=== PATIENT | male | born 1965 | race Caucasian/White ===

== ENCOUNTER 2020-02-27 12:21 | Inpatient (IN) | payer BC ==
[2020-02-27] MEDS ORDERED: Iopamidol 755 Mg/ML 100 ML Bottle IVPUSH ONE (12:37)
[2020-02-27 12:54] LABS: CHLORIDE,CL 93 mEq/L (98-106); SODIUM,NA 132 mEq/L (136-145)
[2020-02-27] MEDS ORDERED: Docusate Sodium 100 MG Cap PO PRN (13:40)
[2020-02-27] MEDS: Sodium Chloride 0.9% 1,000 ML IV SCH ×2 (15:10→23:28)
[2020-02-27] MEDS: Clindamycin Phosphate in D5W 300 MG in Premix Bag 1 BAG IV SCH ×4 (15:10→19:29)
[2020-02-27] MEDS: metFORMIN 500 MG Tab PO SCH (17:33)
[2020-02-27] MEDS: Acetaminophen 325 MG Tab PO PRN (17:38)
[2020-02-27] MEDS: Insulin Lispro 100 Units/ML 3 ML Vial SUBCUT SCH (17:41)
[2020-02-27] MEDS: Metoprolol Tartrate 25 MG Tab PO SCH (19:28)
[2020-02-27] MEDS: Enoxaparin 40 MG/0.4 ML Syringe SUBCUT SCH (19:28)
[2020-02-27] MEDS: Insulin Glarg,Human.Rec.Analog 100 Unit/ML SUBCUT SCH (19:57)
[2020-02-27] MEDS: Ibuprofen 200 MG Tab PO PRN (21:14)
[2020-02-27] MEDS: Morphine 2 MG/ML SYRINGE IVPUSH PRN (21:16)
[2020-02-27] MEDS: Ketorolac 10 MG Tab PO PRN (23:25)
[2020-02-28] MEDS: Clindamycin Phosphate in D5W 300 MG in Premix Bag 1 BAG IV SCH ×8 (01:30→19:16)
[2020-02-28] MEDS: Pantoprazole 40 MG Tab.CR PO SCH (06:37)
[2020-02-28] MEDS: Aspirin 81 MG Tab.Chew PO SCH (07:37)
[2020-02-28] MEDS: Metoprolol Tartrate 25 MG Tab PO SCH ×2 (07:37→19:21)
[2020-02-28] MEDS: amLODIPine 2.5 MG Tab PO SCH (07:37)
[2020-02-28] MEDS: Simvastatin 20 MG Tab PO SCH (07:37)
[2020-02-28 07:39] LABS: CHLORIDE,CL 98 mEq/L (98-106); SODIUM,NA 135 mEq/L (136-145)
[2020-02-28] MEDS: Acetaminophen 325 MG Tab PO PRN ×2 (07:50→17:22)
[2020-02-28] MEDS: Sodium Chloride 0.9% 1,000 ML IV SCH ×2 (07:51→21:08)
[2020-02-28] MEDS: Insulin Lispro 100 Units/ML 3 ML Vial SUBCUT SCH ×3 (08:00→17:18)
[2020-02-28] MEDS: metFORMIN 500 MG Tab PO SCH ×2 (08:08→17:18)
--- NOTE | 2020-02-28 09:55 | PCM.PN ---
- General Info Date of Service: 02/28/20 Admission Dx/Problem (Free Text): Cellulitis Subjective Update: Patient states is still sore to chest. Less pain than yesterday. He was febrile last night. Minimal appetite yet. Admits to being up several times during the night to void. Tylenol helps with fever and relieving the discomfort. Functional Status: Reports: Pain Controlled, Tolerating Diet, Ambulating, Urinating - Review of Systems General: Reports: Fever, Weakness, Fatigue, Malaise HEENT: Reports: No Symptoms Pulmonary: Denies: Shortness of Breath, Cough Cardiovascular: Denies: Chest Pain, Edema, Lightheadedness Gastrointestinal: Denies: Abdominal Pain, Nausea, Vomiting Genitourinary: Reports: No Symptoms Musculoskeletal: Reports: Shoulder Pain Skin: Reports: Other (redness) Neurological: Reports: No Symptoms Psychiatric: Reports: No Symptoms - Patient Data Vitals - Most Recent: Last Vital Signs Temp 99.9 F 02/28/20 08:37 Pulse 95 02/28/20 07:49 Resp 20 02/28/20 07:49 BP 169/82 H 02/28/20 07:49 Pulse Ox 100 02/28/20 07:49 Weight - Most Recent: 231 lb 9.6 oz I&O - Last 24 Hours: Intake & Output 02/27/20 02/28/20 02/28/20 22:59 06:59 14:59 Intake Total 100 1050 1000 Balance 100 1050 1000 Lab Results Last 24 Hours: Laboratory Results - last 24 hr 02/27/20 02/27/20 02/27/20 Range/Units 12:30 12:30 12:30 WBC 17.4 H (5.0-10.0) 10^3/uL RBC 5.00 (4.50-6.00) 10^6/uL Hgb 14.0 (14.0-18.0) g/dL Hct 42.0 (40.0-54.0) % MCV 84.0 (82.0-94.0) fL MCH 28.0 (27.0-32.0) pg MCHC 33.3 (33.0-38.0) g/dL RDW Coeff of [place] 13.1 (11.0-15.0) % Plt Count 310 (150-400) 10^3/uL Neut % (Auto) 84.6 (35-85) % Lymph % (Auto) 6.4 L (10-55) % [place] % (Auto) 8.1 (0-16) % Eos % (Auto) 0.7 (0-5) % Baso % (Auto) 0.2 (0-3) % Neut # (Auto) 14.69 H (1.80-7.00) 10^3/uL Lymph # (Auto) 1.12 (1.00-4.80) 10^3/uL [place] # (Auto) 1.41 H (0.00-0.80) 10^3/uL Eos # (Auto) 0.12 (0.00-0.45) 10^3/uL Baso # (Auto) 0.04 10^3/uL Sodium 132 L (136-145) mEq/L Potassium 4.1 (3.5-5.0) mEq/L Chloride 93 L (98-106) mEq/L Carbon Dioxide 26 (21-32) mmol/L BUN 18 (7-18) mg/dL Creatinine 1.3 (0.7-1.3) mg/dL Est Cr Clr Drug Dosing TNP Estimated GFR (MDRD) 57 L (>=60) mL/min Glucose 308 H* (75-99) mg/dL POC Glucose (75-105) mg/dl Lactic Acid 2.1 H (0.4-2.0) mmol/L Calcium 9.1 (8.4-10.1) mg/dL C-Reactive Protein 35.9 H (0.2-0.8) mg/dL 02/27/20 02/27/20 02/28/20 Range/Units 17:21 19:56 07:00 WBC 13.7 H (5.0-10.0) 10^3/uL RBC 4.63 (4.50-6.00) 10^6/uL Hgb 13.1 L (14.0-18.0) g/dL Hct 38.9 L (40.0-54.0) % MCV 84.0 (82.0-94.0) fL MCH 28.3 (27.0-32.0) pg MCHC 33.7 (33.0-38.0) g/dL RDW Coeff of [place] 13.1 (11.0-15.0) % Plt Count 278 (150-400) 10^3/uL Neut % (Auto) 79.5 (35-85) % Lymph % (Auto) 9.7 L (10-55) % [place] % (Auto) 8.7 (0-16) % Eos % (Auto) 2.0 (0-5) % Baso % (Auto) 0.1 (0-3) % Neut # (Auto) 10.85 H (1.80-7.00) 10^3/uL Lymph # (Auto) 1.32 (1.00-4.80) 10^3/uL [place] # (Auto) 1.19 H (0.00-0.80) 10^3/uL Eos # (Auto) 0.27 (0.00-0.45) 10^3/uL Baso # (Auto) 0.02 10^3/uL Sodium (136-145) mEq/L Potassium (3.5-5.0) mEq/L Chloride (98-106) mEq/L Carbon Dioxide (21-32) mmol/L BUN (7-18) mg/dL Creatinine (0.7-1.3) mg/dL Est Cr Clr Drug Dosing Estimated GFR (MDRD) (>=60) mL/min Glucose (75-99) mg/dL POC Glucose 269 H 354 H (75-105) mg/dl Lactic Acid (0.4-2.0) mmol/L Calcium (8.4-10.1) mg/dL C-Reactive Protein (0.2-0.8) mg/dL 02/28/20 02/28/20 02/28/20 Range/Units 07:00 07:00 07:42 WBC (5.0-10.0) 10^3/uL RBC (4.50-6.00) 10^6/uL Hgb (14.0-18.0) g/dL Hct (40.0-54.0) % MCV (82.0-94.0) fL MCH (27.0-32.0) pg MCHC (33.0-38.0) g/dL RDW Coeff of [place] (11.0-15.0) % Plt Count (150-400) 10^3/uL Neut % (Auto) (35-85) % Lymph % (Auto) (10-55) % [place] % (Auto) (0-16) % Eos % (Auto) (0-5) % Baso % (Auto) (0-3) % Neut # (Auto) (1.80-7.00) 10^3/uL Lymph # (Auto) (1.00-4.80) 10^3/uL [place] # (Auto) (0.00-0.80) 10^3/uL Eos # (Auto) (0.00-0.45) 10^3/uL Baso # (Auto) 10^3/uL Sodium 135 L (136-145) mEq/L Potassium 4.0 (3.5-5.0) mEq/L Chloride 98 (98-106) mEq/L Carbon Dioxide 28 (21-32) mmol/L BUN 15 (7-18) mg/dL Creatinine 1.2 (0.7-1.3) mg/dL Est Cr Clr Drug Dosing 74.08 Estimated GFR (MDRD) > 60 (>=60) mL/min Glucose 210 H D (75-99) mg/dL POC Glucose 185 H (75-105) mg/dl Lactic Acid 1.1 (0.4-2.0) mmol/L Calcium 8.8 (8.4-10.1) mg/dL C-Reactive Protein 38.3 H (0.2-0.8) mg/dL Med Orders - Current: Current Medications Acetaminophen (Tylenol) 650 mg PO Q4H PRN PRN Reason: Pain (Mild 1-3)/fever Last Admin: 02/28/20 07:50 Dose: 650 mg Documented by: Amlodipine Besylate (Norvasc) 2.5 mg PO DAILY [facility] Last Admin: 02/28/20 07:37 Dose: 2.5 mg Documented by: Aspirin (Aspirin) 81 mg PO DAILY [facility] Last Admin: 02/28/20 07:37 Dose: 81 mg Documented by: Docusate Sodium (Colace) 100 mg PO BID PRN PRN Reason: Constipation Enoxaparin Sodium (Lovenox) 40 mg SUBCUT Q24H [facility] Last Admin: 02/27/20 19:28 Dose: 40 mg Documented by: Sodium Chloride (Normal Saline) 1,000 mls @ 125 mls/hr IV ASDIRECTED [facility] Last Admin: 02/28/20 07:51 Dose: 125 mls/hr Documented by: Clindamycin Phosphate 300 mg/ (Premix) 50 mls @ 100 mls/hr IV Q6H [facility] Last Admin: 02/28/20 07:36 Dose: 100 mls/hr Documented by: Ibuprofen (Motrin) 400 mg PO Q6H PRN PRN Reason: Pain (mild 1-3) Last Admin: 02/27/20 21:14 Dose: 400 mg Documented by: Insulin Glargine (Lantus) 30 unit SUBCUT BEDTIME [facility] Last Admin: 02/27/20 19:57 Dose: 30 units Documented by: Insulin Human Lispro (Humalog) 14 unit SUBCUT TIDAC [facility] Last Admin: 02/28/20 08:00 Dose: 14 units Documented by: Ketorolac Tromethamine (Toradol) 10 mg PO Q6H PRN PRN Reason: Pain Stop: 03/03/20 15:58 Last Admin: 02/27/20 23:25 Dose: 10 mg Documented by: Metformin HCl (Glucophage) 1,000 mg PO BIDMEALS [facility] Last Admin: 02/28/20 08:08 Dose: Not Given Documented by: Metoprolol Tartrate (Lopressor) 25 mg PO BID [facility] Last Admin: 02/28/20 07:37 Dose: 25 mg Documented by: Morphine Sulfate (Morphine) 2 mg IVPUSH Q2H PRN PRN Reason: Pain (severe 7-10) Last Admin: 02/27/20 21:16 Dose: 2 mg Documented by: Pantoprazole Sodium (Protonix) 40 mg PO ACBRK [facility] Last Admin: 02/28/20 06:37 Dose: 40 mg Documented by: Simvastatin (Zocor) 20 mg PO DAILY [facility] Last Admin: 02/28/20 07:37 Dose: 20 mg Documented by: Discontinued Medications Iopamidol (Isovue-370 (76%)) 100 ml IVPUSH ONETIME ONE Stop: 02/27/20 12:38 Last Admin: 02/27/20 13:02 Dose: 100 ml Documented by: - Exam General: Alert, Oriented HEENT: Mucous Membr. Moist/[place] Neck: Supple Lungs: Clear to Auscultation, Normal Respiratory Effort Cardiovascular: Regular Rate, Regular Rhythm GI/Abdominal Exam: Normal Bowel Sounds, Soft, Non-Tender Extremities: Normal Inspection, No Pedal Edema Skin: Warm, Dry Neurological: No New Focal Deficit Sepsis Event Note - Evaluation Sepsis Screening Result: Sepsis Risk - Focused Exam Vital Signs: Vital Signs Temp Pulse Pulse Resp BP BP Pulse Ox 02/28/20 08:37 99.9 F 02/28/20 07:49 100.2 F 95 20 169/82 H 100 02/28/20 07:37 90 153/76 H 02/28/20 05:00 98.4 F 90 20 153/76 H 100 02/27/20 23:37 98.0 F 88 20 150/79 H 95 - Problem List & Annotations (1) Cellulitis SNOMED Code(s): 198295176 Code(s): L03.90 - CELLULITIS, UNSPECIFIED Status: Acute Priority: High Current Visit: Yes Qualifiers: Site of cellulitis: unspecified site Qualified Code(s): L03.90 - Cellulitis, unspecified - Problem List Review Problem List Initiated/Reviewed/Updated: Yes - Assessment Assessment:: Cellulitis chest wall - Plan Plan:: Will continue with IV Cleocin. Reduce IV fluids to 75 ml/hr. Up and ambulate. Blood pressure elevated this am. WBC 13.7, decreased slightly from yesterday. CRP high at 38.3. Glucose has been running high at 210. Continue to monitor.
[2020-02-28] MEDS: Ibuprofen 200 MG Tab PO PRN (12:09)
[2020-02-28] MEDS: Enoxaparin 40 MG/0.4 ML Syringe SUBCUT SCH (19:22)
[2020-02-28] MEDS: Insulin Glarg,Human.Rec.Analog 100 Unit/ML SUBCUT SCH (20:05)
[2020-02-28] MEDS: Ketorolac 10 MG Tab PO PRN (21:07)
[2020-02-28] MEDS: Morphine 2 MG/ML SYRINGE IVPUSH PRN (23:40)
[2020-02-29] MEDS: Clindamycin Phosphate in D5W 300 MG in Premix Bag 1 BAG IV SCH ×8 (01:55→19:37)
[2020-02-29] MEDS: Acetaminophen 325 MG Tab PO PRN ×3 (04:12→16:31)
[2020-02-29] MEDS: Pantoprazole 40 MG Tab.CR PO SCH (06:58)
[2020-02-29 07:35] LABS: CHLORIDE,CL 100 mEq/L (98-106); SODIUM,NA 136 mEq/L (136-145)
[2020-02-29] MEDS: metFORMIN 500 MG Tab PO SCH ×2 (08:12→17:27)
[2020-02-29] MEDS: Insulin Lispro 100 Units/ML 3 ML Vial SUBCUT SCH ×3 (08:12→17:29)
[2020-02-29] MEDS: Aspirin 81 MG Tab.Chew PO SCH (08:20)
[2020-02-29] MEDS: Metoprolol Tartrate 25 MG Tab PO SCH ×2 (08:20→19:34)
[2020-02-29] MEDS: Ibuprofen 200 MG Tab PO PRN ×2 (08:20→19:45)
[2020-02-29] MEDS: amLODIPine 2.5 MG Tab PO SCH (08:20)
[2020-02-29] MEDS: Simvastatin 20 MG Tab PO SCH (08:21)
--- NOTE | 2020-02-29 10:16 | PCM.PN ---
- General Info Date of Service: 02/29/20 Admission Dx/Problem (Free Text): Cellulitis Functional Status: Reports: Pain Controlled, Tolerating Diet, Ambulating - Review of Systems General: Reports: Malaise. Denies: Fever, Weakness, Fatigue HEENT: Denies: Headaches, Sinus Congestion, Sore Throat Pulmonary: Denies: Shortness of Breath, Cough Cardiovascular: Denies: Chest Pain, Edema, Lightheadedness Gastrointestinal: Denies: Abdominal Pain, Nausea, Vomiting Genitourinary: Reports: No Symptoms Musculoskeletal: Reports: No Symptoms Skin: Reports: Other (redness and warmth to right anterior chest) Neurological: Denies: Dizziness, Weakness - Patient Data Vitals - Most Recent: Last Vital Signs Temp 97.6 F 02/29/20 08:00 Pulse 81 02/29/20 08:20 Resp 20 02/29/20 08:00 BP 149/82 H 02/29/20 08:20 Pulse Ox 97 02/29/20 08:00 Weight - Most Recent: 231 lb 9.6 oz I&O - Last 24 Hours: Intake & Output 02/28/20 02/29/20 02/29/20 22:59 06:59 14:59 Intake Total 1050 50 Balance 1050 50 Lab Results Last 24 Hours: Laboratory Results - last 24 hr 02/28/20 02/28/20 02/28/20 Range/Units 11:29 17:10 20:03 WBC (5.0-10.0) 10^3/uL RBC (4.50-6.00) 10^6/uL Hgb (14.0-18.0) g/dL Hct (40.0-54.0) % MCV (82.0-94.0) fL MCH (27.0-32.0) pg MCHC (33.0-38.0) g/dL RDW Coeff of [place] (11.0-15.0) % Plt Count (150-400) 10^3/uL Neut % (Auto) (35-85) % Lymph % (Auto) (10-55) % [place] % (Auto) (0-16) % Eos % (Auto) (0-5) % Baso % (Auto) (0-3) % Neut # (Auto) (1.80-7.00) 10^3/uL Lymph # (Auto) (1.00-4.80) 10^3/uL [place] # (Auto) (0.00-0.80) 10^3/uL Eos # (Auto) (0.00-0.45) 10^3/uL Baso # (Auto) 10^3/uL Sodium (136-145) mEq/L Potassium (3.5-5.0) mEq/L Chloride (98-106) mEq/L Carbon Dioxide (21-32) mmol/L BUN (7-18) mg/dL Creatinine (0.7-1.3) mg/dL Est Cr Clr Drug Dosing mL/min Estimated GFR (MDRD) (>=60) mL/min Glucose (75-99) mg/dL POC Glucose 276 H 245 H 304 H (75-105) mg/dl Lactic Acid (0.4-2.0) mmol/L Calcium (8.4-10.1) mg/dL C-Reactive Protein (0.2-0.8) mg/dL 02/29/20 02/29/20 02/29/20 Range/Units 07:00 07:00 07:00 WBC 9.7 (5.0-10.0) 10^3/uL RBC 4.37 L (4.50-6.00) 10^6/uL Hgb 12.3 L (14.0-18.0) g/dL Hct 36.9 L (40.0-54.0) % MCV 84.4 (82.0-94.0) fL MCH 28.1 (27.0-32.0) pg MCHC 33.3 (33.0-38.0) g/dL RDW Coeff of [place] 13.0 (11.0-15.0) % Plt Count 287 (150-400) 10^3/uL Neut % (Auto) 71.8 (35-85) % Lymph % (Auto) 16.0 (10-55) % [place] % (Auto) 7.9 (0-16) % Eos % (Auto) 4.1 (0-5) % Baso % (Auto) 0.2 (0-3) % Neut # (Auto) 6.97 (1.80-7.00) 10^3/uL Lymph # (Auto) 1.55 (1.00-4.80) 10^3/uL [place] # (Auto) 0.77 (0.00-0.80) 10^3/uL Eos # (Auto) 0.40 (0.00-0.45) 10^3/uL Baso # (Auto) 0.02 10^3/uL Sodium 136 (136-145) mEq/L Potassium 3.6 (3.5-5.0) mEq/L Chloride 100 (98-106) mEq/L Carbon Dioxide 28 (21-32) mmol/L BUN 15 (7-18) mg/dL Creatinine 1.2 (0.7-1.3) mg/dL Est Cr Clr Drug Dosing 74.08 mL/min Estimated GFR (MDRD) > 60 (>=60) mL/min Glucose 227 H (75-99) mg/dL POC Glucose (75-105) mg/dl Lactic Acid 0.7 (0.4-2.0) mmol/L Calcium 8.5 (8.4-10.1) mg/dL C-Reactive Protein 25.4 H (0.2-0.8) mg/dL 02/29/20 Range/Units 08:09 WBC (5.0-10.0) 10^3/uL RBC (4.50-6.00) 10^6/uL Hgb (14.0-18.0) g/dL Hct (40.0-54.0) % MCV (82.0-94.0) fL MCH (27.0-32.0) pg MCHC (33.0-38.0) g/dL RDW Coeff of [place] (11.0-15.0) % Plt Count (150-400) 10^3/uL Neut % (Auto) (35-85) % Lymph % (Auto) (10-55) % [place] % (Auto) (0-16) % Eos % (Auto) (0-5) % Baso % (Auto) (0-3) % Neut # (Auto) (1.80-7.00) 10^3/uL Lymph # (Auto) (1.00-4.80) 10^3/uL [place] # (Auto) (0.00-0.80) 10^3/uL Eos # (Auto) (0.00-0.45) 10^3/uL Baso # (Auto) 10^3/uL Sodium (136-145) mEq/L Potassium (3.5-5.0) mEq/L Chloride (98-106) mEq/L Carbon Dioxide (21-32) mmol/L BUN (7-18) mg/dL Creatinine (0.7-1.3) mg/dL Est Cr Clr Drug Dosing mL/min Estimated GFR (MDRD) (>=60) mL/min Glucose (75-99) mg/dL POC Glucose 202 H (75-105) mg/dl Lactic Acid (0.4-2.0) mmol/L Calcium (8.4-10.1) mg/dL C-Reactive Protein (0.2-0.8) mg/dL Shawn Results Last 24 Hours: Microbiology 02/27/20 14:43 Aerobic Blood Culture - Preliminary Blood - Venous - Lab Draw NO GROWTH AFTER 1 DAY Anaerobic Blood Culture - Preliminary NO GROWTH AFTER 1 DAY 02/27/20 14:43 Aerobic Blood Culture - Preliminary Blood - Venous NO GROWTH AFTER 1 DAY Anaerobic Blood Culture - Preliminary NO GROWTH AFTER 1 DAY Med Orders - Current: Current Medications Acetaminophen (Tylenol) 650 mg PO Q4H PRN PRN Reason: Pain (Mild 1-3)/fever Last Admin: 02/29/20 04:12 Dose: 650 mg Documented by: Amlodipine Besylate (Norvasc) 2.5 mg PO DAILY [facility] Last Admin: 02/29/20 08:20 Dose: 2.5 mg Documented by: Aspirin (Aspirin) 81 mg PO DAILY [facility] Last Admin: 02/29/20 08:20 Dose: 81 mg Documented by: Docusate Sodium (Colace) 100 mg PO BID PRN PRN Reason: Constipation Enoxaparin Sodium (Lovenox) 40 mg SUBCUT Q24H [facility] Last Admin: 02/28/20 19:22 Dose: 40 mg Documented by: Clindamycin Phosphate 300 mg/ (Premix) 50 mls @ 100 mls/hr IV Q6H [facility] Last Admin: 02/29/20 08:19 Dose: 100 mls/hr Documented by: Ibuprofen (Motrin) 400 mg PO Q6H PRN PRN Reason: Pain (mild 1-3) Last Admin: 02/29/20 08:20 Dose: 400 mg Documented by: Insulin Glargine (Lantus) 30 unit SUBCUT BEDTIME [facility] Last Admin: 02/28/20 20:05 Dose: 30 units Documented by: Insulin Human Lispro (Humalog) 14 unit SUBCUT TIDAC [facility] Last Admin: 02/29/20 08:12 Dose: 14 units Documented by: Ketorolac Tromethamine (Toradol) 10 mg PO Q6H PRN PRN Reason: Pain Stop: 03/03/20 15:58 Last Admin: 02/28/20 21:07 Dose: 10 mg Documented by: Metformin HCl (Glucophage) 1,000 mg PO BIDMEALS [facility] Last Admin: 02/29/20 08:12 Dose: Not Given Documented by: Metoprolol Tartrate (Lopressor) 25 mg PO BID [facility] Last Admin: 02/29/20 08:20 Dose: 25 mg Documented by: Morphine Sulfate (Morphine) 2 mg IVPUSH Q2H PRN PRN Reason: Pain (severe 7-10) Last Admin: 02/28/20 23:40 Dose: 2 mg Documented by: Pantoprazole Sodium (Protonix) 40 mg PO ACBRK [facility] Last Admin: 02/29/20 06:58 Dose: 40 mg Documented by: Simvastatin (Zocor) 20 mg PO DAILY [facility] Last Admin: 02/29/20 08:21 Dose: 20 mg Documented by: Discontinued Medications Sodium Chloride (Normal Saline) 1,000 mls @ 125 mls/hr IV ASDIRECTED [facility] Last Admin: 02/28/20 21:08 Dose: 125 mls/hr Documented by: Iopamidol (Isovue-370 (76%)) 100 ml IVPUSH ONETIME ONE Stop: 02/27/20 12:38 Last Admin: 02/27/20 13:02 Dose: 100 ml Documented by: - Exam General: Alert, Oriented HEENT: Mucous Membr. Moist/[place] Neck: Supple Lungs: Clear to Auscultation, Normal Respiratory Effort Cardiovascular: Regular Rate, Regular Rhythm GI/Abdominal Exam: Normal Bowel Sounds, Soft, Non-Tender Extremities: No Pedal Edema Skin: Warm, Dry Wound/Incisions: Erythema Improving (area to right chest is improving. Yesterday the redness had extended, now smaller in size, less tender. Still firm to localized area. ) Neurological: No New Focal Deficit Sepsis Event Note - Evaluation Sepsis Screening Result: No Definite Risk - Focused Exam Vital Signs: Vital Signs Temp Pulse Pulse Resp BP BP Pulse Ox 02/29/20 08:20 81 149/82 H 02/29/20 08:00 97.6 F 81 20 149/82 H 97 02/29/20 04:00 98.4 F 79 20 161/81 H 99 02/28/20 23:45 98.5 F 76 20 149/76 H 100 - Problem List & Annotations (1) Cellulitis SNOMED Code(s): 772874102 Code(s): L03.90 - CELLULITIS, UNSPECIFIED Status: Acute Priority: High Current Visit: Yes Qualifiers: Site of cellulitis: unspecified site Qualified Code(s): L03.90 - Cellulitis, unspecified - Problem List Review Problem List Initiated/Reviewed/Updated: Yes - Assessment Assessment:: Cellulitis chest wall - Plan Plan:: Will continue with IV Cleocin. Reduce IV fluids to 75 ml/hr. Up and ambulate. Blood pressure elevated this am. WBC 13.7, decreased slightly from yesterday. CRP high at 38.3. Glucose has been running high at 210. Continue to monitor. 02-29-2020 Patient is feeling better. States pain in shoulder is much improved. Area of redness yesterday had extended out but today more localized. Much less tender. Still warm and firm. States appetite has improved. Is up and ambulating. Labs are improving, WBC now normal. CRP trending down, 24.5 today. Blood pressure better at 149/82. Preliminary blood cultures negative. Will stop IV fluids. Continue IV Cleocin. Resume Metformin this evening. Possible discharge home tomorrow.
[2020-02-29] MEDS: Enoxaparin 40 MG/0.4 ML Syringe SUBCUT SCH (19:35)
[2020-02-29] MEDS: Insulin Glarg,Human.Rec.Analog 100 Unit/ML SUBCUT SCH (19:49)
[2020-03-01] MEDS: Clindamycin Phosphate in D5W 300 MG in Premix Bag 1 BAG IV SCH ×8 (01:26→20:28)
[2020-03-01] MEDS: Acetaminophen 325 MG Tab PO PRN ×4 (01:33→20:35)
[2020-03-01] MEDS: Ibuprofen 200 MG Tab PO PRN ×2 (05:10→12:24)
[2020-03-01] MEDS: Pantoprazole 40 MG Tab.CR PO SCH (06:09)
[2020-03-01] MEDS: amLODIPine 2.5 MG Tab PO SCH (07:39)
[2020-03-01] MEDS: metFORMIN 500 MG Tab PO SCH ×2 (07:40→16:59)
[2020-03-01] MEDS: Simvastatin 20 MG Tab PO SCH (07:40)
[2020-03-01] MEDS: Metoprolol Tartrate 25 MG Tab PO SCH ×2 (07:40→20:27)
[2020-03-01] MEDS: Aspirin 81 MG Tab.Chew PO SCH (07:41)
[2020-03-01] MEDS: Insulin Lispro 100 Units/ML 3 ML Vial SUBCUT SCH ×3 (07:43→17:02)
--- NOTE | 2020-03-01 09:00 | PCM.PN ---
- General Info Date of Service: 03/01/20 Admission Dx/Problem (Free Text): Cellulitis Subjective Update: Carlos is a 54 year old male who was admitted to the hospital on the with cellulitis to right chest wall. Had apparently been having increased right shoulder pain the week prior. Subsequently developed a hard lump with redness to right sternoclavicular area. CT chest was completed showing cellulitis in affected area, but no fluid collection/abscess. Was admitted and started on IV cleocin. He reports pain has improved. Area does still remain tender to light tough. Did take Tylenol prior to rounds and reports pain in area has now improved to 1/10. Is able to move his arm more than previous without significant pain. He has been afebrile since Sunday. Reports appetite is slowly improving. Functional Status: Reports: Pain Controlled, Tolerating Diet, Ambulating, Urinating. Denies: New Symptoms - Review of Systems General: Denies: Fever, Weakness, Fatigue, Malaise, Chills HEENT: Reports: No Symptoms Pulmonary: Reports: No Symptoms. Denies: Shortness of Breath, Pleuritic Chest Pain, Cough, Wheezing Cardiovascular: Reports: No Symptoms. Denies: Chest Pain, Dyspnea on Exertion, Orthopnea, Edema, Lightheadedness Gastrointestinal: Reports: No Symptoms. Denies: Abdominal Pain, Decreased Appetite, Diarrhea, Nausea, Vomiting Genitourinary: Reports: No Symptoms Musculoskeletal: Reports: Shoulder Pain (right) Skin: Reports: Other (area of erythema more localized, lump raised, firm, and tender to touch to right sternoclavicular region) Neurological: Reports: No Symptoms Psychiatric: Reports: No Symptoms - Patient Data Vitals - Most Recent: Last Vital Signs Temp 98.2 F 03/01/20 08:00 Pulse 68 03/01/20 08:00 Resp 16 03/01/20 08:00 BP 144/76 H 03/01/20 08:00 Pulse Ox 97 03/01/20 08:00 Weight - Most Recent: 231 lb 9.6 oz I&O - Last 24 Hours: Intake & Output 02/29/20 03/01/20 03/01/20 22:59 06:59 14:59 Intake Total 50 50 Balance 50 50 Lab Results Last 24 Hours: Laboratory Results - last 24 hr 02/29/20 02/29/20 02/29/20 Range/Units 11:44 17:27 19:48 POC Glucose 246 H 258 H 277 H (75-105) mg/dl 03/01/20 Range/Units 07:37 POC Glucose 221 H (75-105) mg/dl Shawn Results Last 24 Hours: Microbiology 02/27/20 14:43 Aerobic Blood Culture - Preliminary Blood - Venous - Lab Draw Staphylococcus Aureus Anaerobic Blood Culture - Final 02/27/20 14:43 Aerobic Blood Culture - Preliminary Blood - Venous NO GROWTH AFTER 2 DAYS Anaerobic Blood Culture - Final Med Orders - Current: Current Medications Acetaminophen (Tylenol) 650 mg PO Q4H PRN PRN Reason: Pain (Mild 1-3)/fever Last Admin: 03/01/20 08:05 Dose: 650 mg Documented by: Amlodipine Besylate (Norvasc) 2.5 mg PO DAILY [facility] Last Admin: 03/01/20 07:39 Dose: 2.5 mg Documented by: Aspirin (Aspirin) 81 mg PO DAILY [facility] Last Admin: 03/01/20 07:41 Dose: 81 mg Documented by: Docusate Sodium (Colace) 100 mg PO BID PRN PRN Reason: Constipation Enoxaparin Sodium (Lovenox) 40 mg SUBCUT Q24H [facility] Last Admin: 02/29/20 19:35 Dose: 40 mg Documented by: Clindamycin Phosphate 300 mg/ (Premix) 50 mls @ 100 mls/hr IV Q6H [facility] Last Admin: 03/01/20 07:38 Dose: 100 mls/hr Documented by: Ibuprofen (Motrin) 400 mg PO Q6H PRN PRN Reason: Pain (mild 1-3) Last Admin: 03/01/20 05:10 Dose: 400 mg Documented by: Insulin Glargine (Lantus) 30 unit SUBCUT BEDTIME [facility] Last Admin: 02/29/20 19:49 Dose: 30 units Documented by: Insulin Human Lispro (Humalog) 14 unit SUBCUT TIDAC [facility] Last Admin: 03/01/20 07:43 Dose: 14 units Documented by: Ketorolac Tromethamine (Toradol) 10 mg PO Q6H PRN PRN Reason: Pain Stop: 03/03/20 15:58 Last Admin: 02/28/20 21:07 Dose: 10 mg Documented by: Metformin HCl (Glucophage) 1,000 mg PO BIDMEALS [facility] Last Admin: 03/01/20 07:40 Dose: 1,000 mg Documented by: Metoprolol Tartrate (Lopressor) 25 mg PO BID [facility] Last Admin: 03/01/20 07:40 Dose: 25 mg Documented by: Morphine Sulfate (Morphine) 2 mg IVPUSH Q2H PRN PRN Reason: Pain (severe 7-10) Last Admin: 02/28/20 23:40 Dose: 2 mg Documented by: Pantoprazole Sodium (Protonix) 40 mg PO ACBRK [facility] Last Admin: 03/01/20 06:09 Dose: 40 mg Documented by: Simvastatin (Zocor) 20 mg PO DAILY [facility] Last Admin: 03/01/20 07:40 Dose: 20 mg Documented by: Discontinued Medications Sodium Chloride (Normal Saline) 1,000 mls @ 125 mls/hr IV ASDIRECTED [facility] Last Admin: 02/28/20 21:08 Dose: 125 mls/hr Documented by: Iopamidol ([id number] (76%)) 100 ml IVPUSH ONETIME ONE Stop: 02/27/20 12:38 Last Admin: 02/27/20 13:02 Dose: 100 ml Documented by: - Exam Quality Assessment: DVT Prophylaxis General: Alert, Oriented, No Acute Distress Neck: Supple Lungs: Clear to Auscultation, Normal Respiratory Effort Cardiovascular: Regular Rate, Regular Rhythm GI/Abdominal Exam: Normal Bowel Sounds, Soft, Non-Tender, No Organomegaly, No Distention, No Abnormal Bruit, No Mass, Pelvis Stable Extremities: Normal Inspection, Normal Range of Motion, Non-Tender, No Pedal Edema, Normal Capillary Refill Peripheral Pulses: 2+: Radial (L), Radial (R) Wound/Incisions: No Drainage, Erythema Improving, Other (raised hard lump to right sternoclavicular region, area tender to touch, erythema and calor improving) Neurological: No New Focal Deficit Psy/Mental Status: Alert, Normal Affect, Normal Mood Sepsis Event Note - Evaluation Sepsis Screening Result: No Definite Risk - Focused Exam Vital Signs: Vital Signs Temp Pulse Pulse Resp BP BP BP 03/01/20 08:00 98.2 F 68 16 144/76 H 03/01/20 07:40 68 144/76 H 03/01/20 07:39 144/76 H 03/01/20 05:00 96.0 F L 64 16 147/76 H 03/01/20 01:00 96.3 F L 71 16 144/72 H Pulse Ox 03/01/20 08:00 97 03/01/20 07:40 03/01/20 07:39 03/01/20 05:00 97 03/01/20 01:00 97 - Problem List & Annotations (1) Cellulitis SNOMED Code(s): 402783501 Code(s): L03.90 - CELLULITIS, UNSPECIFIED Status: Acute Priority: High Current Visit: Yes Qualifiers: Site of cellulitis: unspecified site Qualified Code(s): L03.90 - Cellulitis, unspecified (2) Sepsis due to Staphylococcus aureus SNOMED Code(s): 174818277 Code(s): A41.01 - SEPSIS DUE TO METHICILLIN SUSCEPTIBLE STAPHYLOCOCCUS AUREUS Status: Acute Current Visit: Yes - Problem List Review Problem List Initiated/Reviewed/Updated: Yes - My Orders Last 24 Hours: My Active Orders 03/01/20 08:46 CBC WITH AUTO DIFF [HEME] Routine 03/01/20 08:47 BMP [BASIC METABOLIC PANEL,BMP] [CHEM] Routine C-REACTIVE PROTEIN [CHEM] Routine - Assessment Assessment:: Cellulitis chest wall Sepsis - Plan Plan:: Labs improving. WBC improved from 17.4 on admit to 7.9 today. CRP continues to trend down as well. Was 35.9 on admit and is 11.7 today. Preliminary blood cultures 1/4 positive for staph aureus. Labs otherwise stable. VSS on RA. Has been afebrile since Sunday. Continues to have firm lump to right sternoclavicular region, but erythema more localized and pain improving. Appetite improving. No diarrhea. Awaiting final blood culture/sensitivity. Will continue with IV cleocin. Anticipate discharge tomorrow.
[2020-03-01 09:18] LABS: CHLORIDE,CL 102 mEq/L (98-106); SODIUM,NA 138 mEq/L (136-145)
[2020-03-01] MEDS: Enoxaparin 40 MG/0.4 ML Syringe SUBCUT SCH (20:28)
[2020-03-01] MEDS: Insulin Glarg,Human.Rec.Analog 100 Unit/ML SUBCUT SCH (20:29)
[2020-03-02] MEDS: Ketorolac 10 MG Tab PO PRN (02:06)
[2020-03-02] MEDS: Clindamycin Phosphate in D5W 300 MG in Premix Bag 1 BAG IV SCH ×4 (02:07→07:50)
[2020-03-02] MEDS: Aspirin 81 MG Tab.Chew PO SCH (07:49)
[2020-03-02] MEDS: metFORMIN 500 MG Tab PO SCH (07:49)
[2020-03-02] MEDS: Metoprolol Tartrate 25 MG Tab PO SCH (07:49)
[2020-03-02] MEDS: Acetaminophen 325 MG Tab PO PRN (07:49)
[2020-03-02] MEDS: amLODIPine 2.5 MG Tab PO SCH (07:49)
[2020-03-02] MEDS: Simvastatin 20 MG Tab PO SCH (07:49)
[2020-03-02] MEDS: Pantoprazole 40 MG Tab.CR PO SCH (07:49)
[2020-03-02] MEDS: Insulin Lispro 100 Units/ML 3 ML Vial SUBCUT SCH (07:54)
--- NOTE | 2020-03-02 10:55 | PCM.DCSUM1 ---
Discharge Summary - Hospital Course HPI Initial Comments: Carlos is a 54 year old male who was admitted to the hospital 02/27/2020 for right chest cellulitis. Had been having right shoulder pain for approximately the week prior. Had been into [facility] ED and was thought to be musculoskeletal. Over the next few days he developed large lump to right sternoclavicular area with redness. Was then seen in clinic by Beverley Jain. WBC was elevated to 17.4 and CRP was elevated to 35.9. Chest CT was completed revealing cellulitis of this area without abscess formation. Blood culture were obtained. 03/22 cultures grew staph aureus. Patient was treated with IV clindamycin, which was sensitive. Area of erythema did improve throughout stay. Patient was afebrile after day 1. Pain slightly improved. Labs did improve. WBC was 17.4 on admit and improved to 7.9 on discharge. CRP was 35.9 on admit and improved to 11.7 at time of discharge. Patient will be discharged home on 7 more days of clindamycin. He is advised to follow up with Laquita Jain in 7 days for recheck. - Discharge Data Discharge Date: 03/02/20 Discharge Disposition: Home, Self-Care 01 Condition: Good - Referral to Home Health Primary Care Physician: Andrei Jain PA-C - Discharge Diagnosis/Problem(s) (1) Cellulitis SNOMED Code(s): 949402039 ICD Code: L03.90 - CELLULITIS, UNSPECIFIED Status: Acute Priority: High Qualifiers: Site of cellulitis: unspecified site Qualified Code(s): L03.90 - Cellulitis, unspecified (2) Sepsis due to Staphylococcus aureus SNOMED Code(s): 765755308 ICD Code: A41.01 - SEPSIS DUE TO METHICILLIN SUSCEPTIBLE STAPHYLOCOCCUS AUREUS Status: Acute - Patient Instructions Diet: Usual Diet as Tolerated, Drink 8-10+ Glasses/Day, Diabetic Diet Activity: As Tolerated Notify Provider of: Fever, Increased Pain, Swelling and Redness, Nausea and/or Vomiting - Discharge Plan *PRESCRIPTION DRUG MONITORING PROGRAM REVIEWED*: Not Applicable *COPY OF PRESCRIPTION DRUG MONITORING REPORT IN PATIENT BENJY: Not Applicable Prescriptions/Med Rec: Clindamycin HCl 300 mg PO QID 7 Days #28 capsule amLODIPine [Norvasc] 5 mg PO DAILY #90 Ketorolac [Toradol] 10 mg PO Q6H PRN #20 PRN Reason: Pain Home Medications: Home Meds Aspirin 81 mg PO DAILY 02/27/20 [History] Insulin Aspart [NovoLOG] 14 unit SQ TIDAC 02/27/20 [History] Insulin Glargine,Hum.Rec.Anlog [Lantus Solostar] 30 unit SQ BEDTIME 02/27/20 [History] Metoprolol Tartrate 25 mg PO BID 02/27/20 [History] Omeprazole 20 mg PO DAILY 02/27/20 [History] Rosuvastatin [Crestor] 20 mg PO DAILY 02/27/20 [History] metFORMIN [Glucophage] 1,000 mg PO BIDMEALS 02/27/20 [History] Clindamycin HCl 300 mg PO QID 7 Days #28 capsule 03/02/20 [Rx] Ketorolac [Toradol] 10 mg PO Q6H PRN #20 03/02/20 [Rx] amLODIPine [Norvasc] 5 mg PO DAILY #90 03/02/20 [Rx] Patient Handouts: Cellulitis, Adult, [id number] Referrals: Andrei Jain PA-C [Primary Care Provider] - Santiago Vega MD [Ordering Only Provider] - - Discharge Summary/Plan Comment DC Time >30 min.: No - General Info Date of Service: 03/02/20 Admission Dx/Problem (Free Text: Cellulitis Subjective Update: Patient reports he is feeling well this morning. Is anxious to discharge home. Reports pain has improved. Redness is more localized to lump in right sternoclavicular region. Denies any diarrhea. No other complaints. Functional Status: Reports: Pain Controlled, Tolerating Diet, Ambulating, Urinating. Denies: New Symptoms - Review of Systems General: Denies: Fever, Weakness, Fatigue, Malaise, Chills HEENT: Reports: No Symptoms Pulmonary: Reports: No Symptoms Cardiovascular: Reports: No Symptoms Gastrointestinal: Reports: No Symptoms. Denies: Abdominal Pain, Diarrhea, Nausea, Vomiting Genitourinary: Reports: No Symptoms Musculoskeletal: Reports: Shoulder Pain Skin: Reports: Other (erythema improving) Neurological: Reports: No Symptoms Psychiatric: Reports: No Symptoms - Patient Data Vitals - Most Recent: Last Vital Signs Temp 97.3 F 03/02/20 08:00 Pulse 80 03/02/20 08:00 Resp 18 03/02/20 08:00 BP 145/89 H 03/02/20 08:00 Pulse Ox 95 03/02/20 08:00 Weight - Most Recent: 231 lb 9.6 oz I&O - Last 24 hours: Intake & Output 03/01/20 03/02/20 03/02/20 22:59 06:59 14:59 Intake Total 50 50 Balance 50 50 Lab Results - Last 24 hrs: Laboratory Results - last 24 hr 03/01/20 03/01/20 03/01/20 Range/Units 10:33 16:58 20:16 POC Glucose 178 H 221 H 235 H (75-105) mg/dl 03/02/20 Range/Units 07:44 POC Glucose 161 H (75-105) mg/dl KANDY Results - Last 24 hrs: Microbiology 02/27/20 14:43 Aerobic Blood Culture - Final Blood - Venous - Lab Draw Staphylococcus Aureus Anaerobic Blood Culture - Final 02/27/20 14:43 Aerobic Blood Culture - Preliminary Blood - Venous NO GROWTH AFTER 3 DAYS Anaerobic Blood Culture - Final Med Orders - Current: Current Medications Acetaminophen (Tylenol) 650 mg PO Q4H PRN PRN Reason: Pain (Mild 1-3)/fever Last Admin: 03/02/20 07:49 Dose: 650 mg Documented by: Amlodipine Besylate (Norvasc) 2.5 mg PO DAILY [facility] Last Admin: 03/02/20 07:49 Dose: 2.5 mg Documented by: Aspirin (Aspirin) 81 mg PO DAILY [facility] Last Admin: 03/02/20 07:49 Dose: 81 mg Documented by: Docusate Sodium (Colace) 100 mg PO BID PRN PRN Reason: Constipation Enoxaparin Sodium (Lovenox) 40 mg SUBCUT Q24H [facility] Last Admin: 03/01/20 20:28 Dose: 40 mg Documented by: Clindamycin Phosphate 300 mg/ (Premix) 50 mls @ 100 mls/hr IV Q6H [facility] Last Admin: 03/02/20 07:50 Dose: 100 mls/hr Documented by: Ibuprofen (Motrin) 400 mg PO Q6H PRN PRN Reason: Pain (mild 1-3) Last Admin: 03/01/20 12:24 Dose: 400 mg Documented by: Insulin Glargine (Lantus) 30 unit SUBCUT BEDTIME [facility] Last Admin: 03/01/20 20:29 Dose: 30 units Documented by: Insulin Human Lispro (Humalog) 14 unit SUBCUT TIDAC [facility] Last Admin: 03/02/20 07:54 Dose: 14 units Documented by: Ketorolac Tromethamine (Toradol) 10 mg PO Q6H PRN PRN Reason: Pain Stop: 03/03/20 15:58 Last Admin: 03/02/20 02:06 Dose: 10 mg Documented by: Metformin HCl (Glucophage) 1,000 mg PO BIDMEALS [facility] Last Admin: 03/02/20 07:49 Dose: 1,000 mg Documented by: Metoprolol Tartrate (Lopressor) 25 mg PO BID [facility] Last Admin: 03/02/20 07:49 Dose: 25 mg Documented by: Morphine Sulfate (Morphine) 2 mg IVPUSH Q2H PRN PRN Reason: Pain (severe 7-10) Last Admin: 02/28/20 23:40 Dose: 2 mg Documented by: Pantoprazole Sodium (Protonix) 40 mg PO ACBRK [facility] Last Admin: 03/02/20 07:49 Dose: 40 mg Documented by: Simvastatin (Zocor) 20 mg PO DAILY [facility] Last Admin: 03/02/20 07:49 Dose: 20 mg Documented by: Discontinued Medications Sodium Chloride (Normal Saline) 1,000 mls @ 125 mls/hr IV ASDIRECTED [facility] Last Admin: 02/28/20 21:08 Dose: 125 mls/hr Documented by: Clindamycin Phosphate 300 mg/ (Premix) 50 mls @ 100 mls/hr IV Q6H [facility] Last Admin: 03/01/20 12:56 Dose: 100 mls/hr Documented by: Iopamidol (Isovue-370 (76%)) 100 ml IVPUSH ONETIME ONE Stop: 02/27/20 12:38 Last Admin: 02/27/20 13:02 Dose: 100 ml Documented by: - Exam Quality Assessment: Reports: DVT Prophylaxis General: Reports: Alert, Oriented, No Acute Distress Neck: Reports: Supple Lungs: Reports: Clear to Auscultation, Normal Respiratory Effort Cardiovascular: Reports: Regular Rate, Regular Rhythm GI/Abdominal Exam: Normal Bowel Sounds, Soft, Non-Tender, No Organomegaly, No Distention, No Abnormal Bruit, No Mass, Pelvis Stable Extremities: Normal Inspection, Normal Range of Motion, Normal Capillary Refill, Other (lump remains to right sternoclavicular region, tender to touch) Skin: Reports: Warm, Dry, Intact Wound/Incisions: Reports: Erythema Improving Neurological: Reports: No New Focal Deficit Psy/Mental Status: Reports: Alert, Normal Affect, Normal Mood
== END 2020-03-02 11:19 | disposition home or self-care (01) | DRG 720 ==
LOC: CC.FCMC 12:21 → UNDOADMIN 13:24 → CC.MS 13:24
PROVIDERS: ADMIT Physician Assistant Medical; ATTEND Family Medicine
DX: A41.01 Sepsis due to Methicillin susceptible Staphylococcus aureus (principal); L03.313 Cellulitis of chest wall; Z79.82 Long term (current) use of aspirin; Z79.4 Long term (current) use of insulin; Z79.899 Other long term (current) drug therapy; F41.9 Anxiety disorder, unspecified
CPT/HCPCS: 36415; 71260; 80048; 82962; 83605; 85025; 86140; 87040; 87077; 87186; A9270-GY; J1650; J1815-GY; J2270; J3490; J7030; Q9967

== ENCOUNTER 2024-06-18 14:39 | Inpatient (IN) | payer BC ==
[2024-06-18] MEDS ORDERED: Nitroglycerin 0.4 MG Tab.SL SL PRN (21:33)
[2024-06-18] MEDS ORDERED: oxyCODONE 5 MG Tab PO PRN (21:38)
[2024-06-18] MEDS ORDERED: Sodium Chloride 0.9% 10 ML Syringe FLUSH PRN (21:41)
[2024-06-18] MEDS: ceFAZolin 2 GM Vial IVPUSH SCH (23:46)
[2024-06-18] MEDS: Insulin Glarg,Human.Rec.Analog 100 Unit/ML 10 ML Vial SUBCUT SCH (23:55)
[2024-06-19] MEDS: Pantoprazole 40 MG Tab.CR PO SCH (06:39)
[2024-06-19] MEDS: Insulin Lispro 100 Units/ML 3 ML Vial SUBCUT SCH (07:32)
[2024-06-19] MEDS: Rosuvastatin 10 MG Tab PO SCH (07:36)
[2024-06-19] MEDS: Metoprolol Succinate 25 MG Tab.ER PO SCH (07:37)
[2024-06-19] MEDS: Ascorbic Acid 500 MG Tab PO SCH (07:37)
[2024-06-19] MEDS: Cholecalciferol (Vitamin D3) 25 MCG Tab PO SCH (07:37)
[2024-06-19] MEDS: metFORMIN 500 MG Tab PO SCH (07:42)
[2024-06-19] MEDS: buPROPion 150 MG Tab.ER PO SCH (07:43)
[2024-06-19] MEDS: Aspirin 81 MG Tab.Chew PO SCH (07:43)
[2024-06-19] MEDS ORDERED: Insulin Glarg,Human.Rec.Analog 100 Unit/ML 10 ML Vial SUBCUT SCH (20:00)
[2024-06-19] MEDS: Lactobacillus Rhamnosus GG (Probiotic) Cap PO SCH (23:47)
[2024-06-23 07:59] LABS: BASOPHILS ABSOLUTE AUTO 0.05 10^3/uL (0.00-0.50); BASOPHILS PERCENT AUTO 0.6 % (0-1); EOSINOPHILS ABSOLUTE AUTO 0.34 10^3/uL (0.00-1.50); HEMATOCRIT 33.1 % (42.0-52.0); HEMOGLOBIN 9.9 g/dL (14.0-18.0); IMMATURE GRAN ABSOLUTE AUTO 0.02 10^3/uL (0.00-0.49); IMMATURE GRAN PERCENT AUTO 0.2 % (0.0-4.9); LYMPHOCYTES ABSOLUTE AUTO 2.17 10^3/uL (0.60-5.00); LYMPHOCYTES PERCENT AUTO 25.6 % (24-44); MEAN CORPUSCULAR HEMOGLOBIN 24.4 pg (27.0-32.0); MEAN CORPUSCULAR HGB CONC 29.9 g/dL (32.0-36.0); MEAN CORPUSCULAR VOLUME 81.7 fL (83.0-97.0); MONOCYTES ABSOLUTE AUTO 0.64 10^3/uL (0.00-1.50); MONOCYTES PERCENT AUTO 7.5 % (0-10); NEUTROPHILS ABSOLUTE AUTO 5.26 x10^3/uL (1.80-8.00); NEUTROPHILS PERCENT AUTO 62.1 % (41-71); PLATELET COUNT,PLT 393 10^3/uL (150-400); RED BLOOD CELL COUNT 4.05 x10^6/uL (4.50-6.00); WHITE BLOOD CELL COUNT,WBC 8.5 10^3/uL (4.0-11.0)
[2024-06-23 08:15] LABS: ALBUMIN 1.8 g/dL (3.4-5.0); BILIRUBIN TOTAL 0.3 mg/dL (0.0-1.0); CALCIUM 8.4 mg/dL (8.4-10.1); CREATININE 1.2 mg/dL (0.7-1.3); EST CRCL DRUG DOSING (CG) 73.98 mL/min; POTASSIUM,K 4.6 mEq/L (3.5-5.0); PROTEIN TOTAL,TP 7.3 g/dL (6.4-8.2)
[2024-06-26] MEDS: Insulin Lispro 100 Units/ML 3 ML Vial SUBCUT SCH (07:09)
[2024-06-30] MEDS: Acetaminophen 325 MG Tab PO PRN (03:10)
[2024-06-30] MEDS: oxyCODONE 5 MG Tab PO PRN (06:23)
[2024-06-30 07:23] LABS: ALBUMIN 2.2 g/dL (3.4-5.0); BILIRUBIN TOTAL 0.3 mg/dL (0.0-1.0); CALCIUM 8.7 mg/dL (8.4-10.1); CREATININE 1.2 mg/dL (0.7-1.3); EST CRCL DRUG DOSING (CG) 73.98 mL/min; POTASSIUM,K 4.4 mEq/L (3.5-5.0); PROTEIN TOTAL,TP 7.9 g/dL (6.4-8.2)
[2024-06-30 08:05] LABS: BASOPHILS ABSOLUTE AUTO 0.05 10^3/uL (0.00-0.50); BASOPHILS PERCENT AUTO 0.6 % (0-1); EOSINOPHILS ABSOLUTE AUTO 0.63 10^3/uL (0.00-1.50); EOSINOPHILS PERCENT AUTO 8.1 % (0-6); HEMATOCRIT 33.4 % (42.0-52.0); IMMATURE GRAN ABSOLUTE AUTO 0.01 10^3/uL (0.00-0.49); IMMATURE GRAN PERCENT AUTO 0.1 % (0.0-4.9); LYMPHOCYTES ABSOLUTE AUTO 2.14 10^3/uL (0.60-5.00); LYMPHOCYTES PERCENT AUTO 27.4 % (24-44); MEAN CORPUSCULAR HEMOGLOBIN 24.6 pg (27.0-32.0); MEAN CORPUSCULAR HGB CONC 29.9 g/dL (32.0-36.0); MEAN CORPUSCULAR VOLUME 82.3 fL (83.0-97.0); MONOCYTES ABSOLUTE AUTO 0.66 10^3/uL (0.00-1.50); MONOCYTES PERCENT AUTO 8.5 % (0-10); NEUTROPHILS ABSOLUTE AUTO 4.32 x10^3/uL (1.80-8.00); NEUTROPHILS PERCENT AUTO 55.3 % (41-71); PLATELET COUNT,PLT 312 10^3/uL (150-400); RED BLOOD CELL COUNT 4.06 x10^6/uL (4.50-6.00); WHITE BLOOD CELL COUNT,WBC 7.8 10^3/uL (4.0-11.0)
[2024-07-02] MEDS: Lidocaine 2% Viscous Solution 15 ML UD PO PRN (15:58)
[2024-07-07 07:27] LABS: BASOPHILS ABSOLUTE AUTO 0.06 10^3/uL (0.00-0.50); BASOPHILS PERCENT AUTO 0.9 % (0-1); EOSINOPHILS ABSOLUTE AUTO 0.51 10^3/uL (0.00-1.50); EOSINOPHILS PERCENT AUTO 7.3 % (0-6); HEMATOCRIT 33.2 % (42.0-52.0); HEMOGLOBIN 10.2 g/dL (14.0-18.0); IMMATURE GRAN ABSOLUTE AUTO 0.01 10^3/uL (0.00-0.49); IMMATURE GRAN PERCENT AUTO 0.1 % (0.0-4.9); LYMPHOCYTES ABSOLUTE AUTO 1.91 10^3/uL (0.60-5.00); LYMPHOCYTES PERCENT AUTO 27.4 % (24-44); MEAN CORPUSCULAR HGB CONC 30.7 g/dL (32.0-36.0); MEAN CORPUSCULAR VOLUME 81.4 fL (83.0-97.0); MONOCYTES ABSOLUTE AUTO 0.69 10^3/uL (0.00-1.50); MONOCYTES PERCENT AUTO 9.9 % (0-10); NEUTROPHILS ABSOLUTE AUTO 3.79 x10^3/uL (1.80-8.00); NEUTROPHILS PERCENT AUTO 54.4 % (41-71); PLATELET COUNT,PLT 254 10^3/uL (150-400); RED BLOOD CELL COUNT 4.08 x10^6/uL (4.50-6.00)
[2024-07-07 08:20] LABS: ALBUMIN 2.3 g/dL (3.4-5.0); BILIRUBIN TOTAL 0.2 mg/dL (0.0-1.0); CALCIUM 8.6 mg/dL (8.4-10.1); CREATININE 1.4 mg/dL (0.7-1.3); EST CRCL DRUG DOSING (CG) 63.41 mL/min; POTASSIUM,K 4.4 mEq/L (3.5-5.0); PROTEIN TOTAL,TP 7.5 g/dL (6.4-8.2)
[2024-07-09] MEDS: Bacitracin/Neomycin/Polymyxin B Oint 0.9 GM U/D Packet TOP ONE (21:05)
[2024-07-14 07:26] LABS: BASOPHILS ABSOLUTE AUTO 0.05 10^3/uL (0.00-0.50); BASOPHILS PERCENT AUTO 0.8 % (0-1); EOSINOPHILS ABSOLUTE AUTO 0.39 10^3/uL (0.00-1.50); EOSINOPHILS PERCENT AUTO 5.9 % (0-6); HEMATOCRIT 35.5 % (42.0-52.0); IMMATURE GRAN ABSOLUTE AUTO 0.01 10^3/uL (0.00-0.49); IMMATURE GRAN PERCENT AUTO 0.2 % (0.0-4.9); LYMPHOCYTES ABSOLUTE AUTO 1.79 10^3/uL (0.60-5.00); LYMPHOCYTES PERCENT AUTO 27.3 % (24-44); MEAN CORPUSCULAR HEMOGLOBIN 24.9 pg (27.0-32.0); MEAN CORPUSCULAR VOLUME 80.5 fL (83.0-97.0); MONOCYTES ABSOLUTE AUTO 0.67 10^3/uL (0.00-1.50); MONOCYTES PERCENT AUTO 10.2 % (0-10); NEUTROPHILS ABSOLUTE AUTO 3.65 x10^3/uL (1.80-8.00); NEUTROPHILS PERCENT AUTO 55.6 % (41-71); PLATELET COUNT,PLT 227 10^3/uL (150-400); RED BLOOD CELL COUNT 4.41 x10^6/uL (4.50-6.00); WHITE BLOOD CELL COUNT,WBC 6.6 10^3/uL (4.0-11.0)
[2024-07-14 08:02] LABS: ALBUMIN 2.6 g/dL (3.4-5.0); BILIRUBIN TOTAL 0.5 mg/dL (0.0-1.0); CREATININE 1.3 mg/dL (0.7-1.3); EST CRCL DRUG DOSING (CG) 68.29 mL/min; POTASSIUM,K 4.7 mEq/L (3.5-5.0); PROTEIN TOTAL,TP 7.6 g/dL (6.4-8.2)
[2024-07-21 07:44] LABS: BASOPHILS ABSOLUTE AUTO 0.05 10^3/uL (0.00-0.50); BASOPHILS PERCENT AUTO 0.7 % (0-1); EOSINOPHILS ABSOLUTE AUTO 0.36 10^3/uL (0.00-1.50); EOSINOPHILS PERCENT AUTO 5.1 % (0-6); HEMOGLOBIN 10.6 g/dL (14.0-18.0); IMMATURE GRAN ABSOLUTE AUTO 0.01 10^3/uL (0.00-0.49); IMMATURE GRAN PERCENT AUTO 0.1 % (0.0-4.9); LYMPHOCYTES ABSOLUTE AUTO 1.65 10^3/uL (0.60-5.00); LYMPHOCYTES PERCENT AUTO 23.4 % (24-44); MEAN CORPUSCULAR HEMOGLOBIN 25.1 pg (27.0-32.0); MEAN CORPUSCULAR HGB CONC 31.2 g/dL (32.0-36.0); MEAN CORPUSCULAR VOLUME 80.6 fL (83.0-97.0); MONOCYTES ABSOLUTE AUTO 0.71 10^3/uL (0.00-1.50); MONOCYTES PERCENT AUTO 10.1 % (0-10); NEUTROPHILS ABSOLUTE AUTO 4.26 x10^3/uL (1.80-8.00); NEUTROPHILS PERCENT AUTO 60.6 % (41-71); PLATELET COUNT,PLT 244 10^3/uL (150-400); RED BLOOD CELL COUNT 4.22 x10^6/uL (4.50-6.00)
[2024-07-21 07:47] LABS: ALBUMIN 2.5 g/dL (3.4-5.0); BILIRUBIN TOTAL 0.3 mg/dL (0.0-1.0); CREATININE 1.2 mg/dL (0.7-1.3); EST CRCL DRUG DOSING (CG) 73.98 mL/min; POTASSIUM,K 4.3 mEq/L (3.5-5.0); PROTEIN TOTAL,TP 7.5 g/dL (6.4-8.2)
[2024-07-24] MEDS ORDERED: Amoxicillin/Clavulanate K 875-125 MG Tab PO SCH (17:30)
== END 2024-07-24 17:00 | disposition home or self-care (01) | DRG 344 ==
LOC: UNDOADMIN 19:17 → CC.MS 19:17
PROVIDERS: ADMIT Nurse Practitioner Family; ATTEND Nurse Practitioner Family
DX: E11.628 Type 2 diabetes mellitus with other skin complications (principal); M86.9 Osteomyelitis, unspecified; R53.81 Other malaise; I48.91 Unspecified atrial fibrillation; E78.00 Pure hypercholesterolemia, unspecified; I10 Essential (primary) hypertension; I25.2 Old myocardial infarction; G47.30 Sleep apnea, unspecified; K21.9 Gastro-esophageal reflux disease without esophagitis; K44.9 Diaphragmatic hernia without obstruction or gangrene; F32.A Depression, unspecified; D64.9 Anemia, unspecified; Z85.6 Personal history of leukemia; Z79.82 Long term (current) use of aspirin; Z98.49 Cataract extraction status, unspecified eye; Z79.4 Long term (current) use of insulin; Z98.890 Other specified postprocedural states; Z79.84 Long term (current) use of oral hypoglycemic drugs; Z79.899 Other long term (current) drug therapy
CPT/HCPCS: 36415; 80053; 82947; 85025; 97110-GP; 97140-GP; 97161-GP; A9270-GY; J0690; J1642; J1815-GY